=== PATIENT | female | born 1995 | race Caucasian/White ===

== ENCOUNTER 2019-07-28 15:27 | Emergency (ER) | payer BC ==
[2019-07-28 15:31] VITALS: BP 138/85
--- NOTE | 2019-07-28 16:39 | ER Document Report ---
HPI - HPI Time Seen by Provider: 07/28/19 15:50 Pain Level: 2 Context: Patient is a 24-year-old female presents to emergency department with a chief complaint of sore throat. Patient states she woke up this morning with a sore throat and nasal drainage. Patient states she did attempt to look at the back of her throat and noticed a white exudate on the left side. Patient denies tonsillar swelling. Patient denies difficulty swallowing. Patient states she has not had any medication for her discomfort. Patient denies fever, chills, abdominal pain, nausea, vomiting or diarrhea. Patient states she has had strep multiple times in the past and that she feels like this is the same. - CONSTITUTIONAL Constitutional: DENIES: Fever, Chills - EENT EENT: REPORTS: Sore Throat. DENIES: Ear Pain, Eye problems - NEURO Neurology: DENIES: Headache, Weakness, Vision blurred, Dizzinesss / Vertigo - CARDIOVASCULAR Cardiovascular: DENIES: Chest pain - RESPIRATORY Respiratory: DENIES: Trouble Breathing, Coughing - GASTROINTESTINAL Gastrointestinal: DENIES: Abdominal Pain, Black / Bloody Stools - URINARY Urinary: DENIES: Dysuria, Urgency, Frequency - REPRODUCTIVE Reproductive: DENIES: : - MUSCULOSKELETAL Musculoskeletal: DENIES: Extremity pain Past Medical History - General Information source: Patient - Social History Smoking Status: Never Smoker Chew tobacco use (# tins/day): No Frequency of alcohol use: Social Drug Abuse: None Lives with: Spouse/Significant other Family History: None Patient has suicidal ideation: No Patient has homicidal ideation: No - Past Medical History Cardiac Medical History: Reports: None Pulmonary Medical History: Reports: None EENT Medical History: Reports: None Neurological Medical History: Reports: None Endocrine Medical History: Reports: None Renal/ Medical History: Reports: None. Denies: Hx Peritoneal Dialysis Malignancy Medical History: Reports: None GI Medical History: Reports: None Musculoskeletal Medical History: Reports None Skin Medical History: Reports None Psychiatric Medical History: Reports: None Traumatic Medical History: Reports: None Infectious Medical History: Reports: None Surgical Hx: Negative Vertical Provider Document - CONSTITUTIONAL Agree With Documented VS: Yes Exam Limitations: No Limitations General Appearance: No Apparent Distress - INFECTION CONTROL TRAVEL OUTSIDE OF THE [place] IN LAST 30 DAYS: No - HEENT HEENT: Atraumatic, Normocephalic, PERRLA Notes: Patient does not have any tonsillar swelling but there is some erythema noted bilaterally with white exudate on the left tonsil. Uvula is midline without edema. Pharynx is slightly reddened. Patient does not have any cervical lymphadenopathy anterior or posterior. - NECK Neck: Normal Inspection - RESPIRATORY Respiratory: Breath Sounds Normal, No Respiratory Distress - CARDIOVASCULAR Cardiovascular: Regular Rate, Regular Rhythm - GI/ABDOMEN Gastrointestinal: Abdomen Soft, Abdomen Non-Tender, Normal Bowel Sounds - NEURO Level of Consciousness: Awake, Alert, Appropriate - DERM Integumentary: Warm, Dry, No Rash Course - Re-evaluation Re-evalutation: 07/28/19 17:25 Patient strep test was negative. - Vital Signs Vital signs: Temp Pulse Resp BP Pulse Ox 98.7 F 88 15 138/85 H 98 07/28/19 15:30 07/28/19 15:30 07/28/19 15:30 07/28/19 15:30 07/28/19 15:30 Discharge - Discharge Clinical Impression: Sore throat Condition: Stable Disposition: HOME, SELF-CARE Additional Instructions: Today you are seen in the emergency department for sore throat. At this time your strep test was negative. We have sent off a throat culture and if this does grow anything that requires antibiotics you will be given a call in the next 48 hours. To relieve symptoms take Tylenol as needed for pain. Please sip clear liquids frequently and ice chips. You can use [id number] anesthetic sprays or lozenges. If you have no improvement in the next few days, difficulty breathing, increasing throat pain, high fever rash or frequent vomiting please return the emergency department. Sore Throat Sore throats may be caused by viruses, bacteria, or fungi. Most are due to a virus, and must get better on their own. Bacterial sore throats, particularly those due to "strep," need treatment with antibiotics. If an antibiotic is prescribed, be sure to take the medication for a full 10 days. Failure to take the antibiotic can result in complications such as rheumatic fever. Sometimes, an injection of antibiotics is given instead of pills or liquid. This single "shot" is equal in effectiveness to the oral medication. To relieve symptoms, take acetaminophen for pain. Sip clear liquids frequently, or eat popsicles or ice chips. Anesthetic sprays or lozenges may help. Make sure the air in the room is not too dry. Avoid using decongestants or antihistamines. Call the doctor if there is no improvement in two days, or if you have difficulty breathing, increasing throat pain, high fever, rash, or frequent vomiting.
== END 2019-07-28 17:30 | disposition home or self-care (01) ==
LOC: ER 15:27
DX: J02.9 Acute pharyngitis, unspecified (principal); R09.89 Other specified symptoms and signs involving the circulatory and respiratory systems
CPT/HCPCS: 87070; 87880; 99283